=== PATIENT | male | born 1985 | race Asian ===

== ENCOUNTER 2019-04-18 11:18 | Emergency (ER) | payer BC ==
[~2019-04-18] VITALS: Ht 190.5 cm; Wt 118.0 kg
[2019-04-18] MEDS ORDERED: LIDOCAINE HCL/PF 1% 10 MG/ML 5ML VIAL IJ ONE (12:15)
[2019-04-18] MEDS ORDERED: BACITRACIN ZINC OINT UDPKT TOP ONE (12:15)
[2019-04-18] MEDS ORDERED: IBUPROFEN 600MG TABLET PO ONE (12:15)
[2019-04-18 13:38] VITALS: BP 163/87
== END 2019-04-18 13:45 | disposition home or self-care (01) ==
LOC: ER 11:30
DX: S61.210A Laceration without foreign body of right index finger without damage to nail, initial encounter (principal); F17.200 Nicotine dependence, unspecified, uncomplicated; W26.0XXA Contact with knife, initial encounter; Y93.G3 Activity, cooking and baking; Y92.89 Other specified places as the place of occurrence of the external cause; Y99.8 Other external cause status
CPT/HCPCS: 12002; 73140; 99283; J3490